=== PATIENT | male | born 2000 | race Caucasian/White ===

== ENCOUNTER 2022-06-16 21:34 | Emergency (ER) | payer OTHER ==
[2022-06-16 22:30] LABS: HEMOGLOBIN 14.5 gm/dl (14.0-17.5); RED BLOOD COUNT 4.83 M/UL (4.20-5.50); WHITE BLOOD COUNT 6.9 K/UL (4.5-11.0)
[2022-06-16 22:57] LABS: BUN/CREATININE RATIO 18 (0-10)
== END 2022-06-17 00:10 | disposition left against medical advice (07) ==
LOC: ER1 21:34
PROVIDERS: Student in an Organized Health Care Education/Training Program
DX: R19.5 Other fecal abnormalities (principal); Z88.0 Allergy status to penicillin
CPT/HCPCS: 80053; 83690; 85025; 99281